=== PATIENT | female | born 1960 | race Caucasian/White ===

== ENCOUNTER 2024-10-02 14:33 | Observation (INO) ==
--- NOTE | 2024-10-02 14:55 | Emergency Department Note ---
HPI - SOB/Dyspnea General Chief Complaint: SOB -Shortness of Breath Stated Complaint: Trouble Breathing Time Seen by Provider: 10/02/24 14:51 Source: patient Mode of arrival: walk-in Limitations: no limitations History of Present Illness HPI Narrative: This is a 64 year old female patient that presents to the ER with c/o having the flu a week ago and now is having SOB. Patient states she has a hx of COPD. Patient denies any chest pain, back pain, fever, chills, abdominal pain, numbness, tingling, weakness or N/V. patient has low O2 sats here in the ER on arrival MD elicited complaint: Reports shortness of breath Pertinent past history: Reports COPD Onset (ago): hour(s) (2) Context: Reports recent illness Exacerbating factors: Reports nothing Relieving factors: Reports nothing Known history of: Reports COPD Associated symptoms: Reports denies other symptoms Treatment prior to arrival: Reports none Related Data Home oxygen amount: none Previous Rx's Medication Instructions Recorded cyclobenzaprine 10 mg tablet 10 mg PO TID PRN muscle spasm #14 02/05/24 tabs ketorolac 10 mg tablet 10 mg PO Q6H PRN pain #20 tabs 02/05/24 Allergies Allergy/AdvReac Type Severity Reaction Status Date / Time codeine Allergy Mild Verified 10/02/24 14:46 Review of Systems Status of ROS 10 or more systems reviewed and unremark able except as noted in history and below Constitutional Denies: fever, chills, change in weight, fatigue, malaise or night sweats Eyes Denies: change in vision, blurry vision, blind spots, light sensitivity, eye discomfort, eye discharge or dry eyes Ears, nose, mouth, and throat Denies: throat pain, neck pain, throat swelling, difficulty swallowing, hoarseness or mouth pain Cardiovascular Reports: shortness of breath with exertion and shortness of breath when lying down; Denies: chest pain, palpitations, edema, swelling of feet/ankles, lightheadedness, leg pain with exertion or bluish discoloration of hands/feet Respiratory Reports: shortness of breath; Denies: cough, wheezing, stridor, pain on inspiration, change in phlegm color or coughing up blood Gastrointestinal Denies: abdominal pain, nausea, vomiting, coffee grounds in vomit, heartburn, diarrhea, constipation or bloating Genitourinary Denies: painful urination, urinary frequency, urinary urgency, urinary incontinence, blood in urine or difficulty voiding Musculoskeletal Denies: back pain, neck pain, extremity pain, extremity swelling, joint pain, limited range of motion or joint swelling Integumentary/Breast Denies: rash, itching, redness, skin pain, skin tenderness, skin swelling, sores or new lesion Neurological Denies: headache, numbness in extremities, weakness in extremities, lack of coordination, dizziness, vertigo, confusion or behavioral changes Psychiatric Denies: anxiety, mood swings, panic attacks, change in sleep pattern, hopelessness, loss of interest, irritability or paranoia Endocrine Denies: excessive urination, excessive thirst, fatigue, cold intolerance or excessive sweating Hematologic/Lymphatic Denies: easy bruising, easy bleeding or enlarged lymph nodes Allergic/Immunologic Denies: hives, throat swelling, tongue swelling, facial swelling, wheezing or itchy eyes PFSH PFSH Medical History (Updated 10/03/24 @ 12:18 by Kary Gilmore DO) Tibia/fibula fracture Patient denies medical problems Surgical History Hx of hysterectomy Hx of appendectomy Social History Smoking status: current some day smoker Within the past year, how often did you have a drink containing alcohol: never Within the past year, how often did you have six or more drinks on one occasion: never Score interpretation: A score less than 3 is consistent with normal alcohol consumption. Problems where you live: no known problems Highest level of school completed/degree received: high school Feel stressed/tense/nervous/anxious/difficulty sleeping: not at all Exam Constitutional: normal general appearance and no apparent distress Vital Signs - 24 hr 10/02/24 14:44 10/02/24 15:25 10/02/24 15:30 Temperature 98.1 F Pulse Rate 98 H 87 Pulse Rate [Left B rachial] Respiratory Rate 22 22 Blood Pressure 122/66 137/55 Blood Pressure [Le ft Arm] Pulse Oximetry 90 L 93 L 92 L Oxygen Delivery Me thod Nasal Cannula Oxygen Flow Rate 2 10/02/24 16:30 10/02/24 17:09 10/02/24 17:45 Temperature Pulse Rate 84 89 Pulse Rate [Left B rachial] Respiratory Rate 22 22 Blood Pressure 130/60 137/55 128/62 Blood Pressure [Le ft Arm] Pulse Oximetry 90 L 91 L 84 L Oxygen Delivery Me thod Nasal Cannula Nasal Cannula Nasal Cannula Oxygen Flow Rate 2 2 2 10/02/24 17:50 10/02/24 18:20 10/02/24 18:20 Temperature 98.1 F 97.4 F L Pulse Rate 89 Pulse Rate [Left B rachial] 88 Respiratory Rate 25 H Blood Pressure 128/62 Blood Pressure [Le ft Arm] 131/55 Pulse Oximetry 91 L 95 Oxygen Delivery Me thod Nasal Cannula Nasal Cannula Oxygen Flow Rate 2 2 10/02/24 20:00 10/02/24 21:03 10/02/24 21:03 Temperature 97.9 F Pulse Rate Pulse Rate [Left B rachial] 78 Respiratory Rate 20 Blood Pressure Blood Pressure [Le ft Arm] 132/76 Pulse Oximetry 89 L 90 L 90 L Oxygen Delivery Me thod Nasal Cannula Nasal Cannula Oxygen Flow Rate 2 2 10/03/24 00:00 10/03/24 00:52 10/03/24 03:50 Temperature 98.2 F Pulse Rate Pulse Rate [Left B rachial] 71 68 Respiratory Rate 18 18 Blood Pressure Blood Pressure [Le ft Arm] 114/62 116/51 Pulse Oximetry 95 95 95 Oxygen Delivery Me thod Nasal Cannula Nasal Cannula Oxygen Flow Rate 2 2 10/03/24 04:54 10/03/24 07:30 10/03/24 08:00 Temperature 97.6 F Pulse Rate Pulse Rate [Left B rachial] 72 Respiratory Rate 24 Blood Pressure Blood Pressure [Le ft Arm] 109/51 Pulse Oximetry 96 89 L 96 Oxygen Delivery Me thod Nasal Cannula Oxygen Flow Rate 3 10/03/24 08:30 10/03/24 11:20 Temperature Pulse Rate Pulse Rate [Left B rachial] Respiratory Rate Blood Pressure Blood Pressure [Le ft Arm] Pulse Oximetry 95 97 Oxygen Delivery Me thod Oxygen Flow Rate HENMT: normocephalic, head/scalp atraumatic, hearing grossly normal bilaterally, external ears normal, EACs normal, nasal mucous membranes normal, external nose normal, oral mucous membranes normal and oropharynx normal Eyes: PERRL, EOMs intact bilaterally, conjunctivae normal and no scleral icterus Neck/C-Spine: visual inspection normal and trachea midline Lymph: no lymphadenopathy noted Chest: inspection of chest normal and palpation of chest normal Respiratory: breath sounds equal bilaterally, abnormal respiratory effort (shallow breathing), auscultation abnormal (diminished breath sound), wheezing noted (scattered wheezes), no rales, no retractions, no use of accessory muscles and chest percussion normal Cardiovascular: normal heart rate noted, regular rhythm noted, no gallop, no rub, no murmur, no JVD, no clicks, peripheral pulses 2+ throughout and no additional abnormal heart sounds Gastrointestinal: abdomen normal to inspection, abdomen soft to palpation, nontender to palpation, nontender to percussion, nondistended, normoactive bowel sounds, no hepatosplenomegaly, no masses, no pulsatile mass, no ascites and no hernia Genitourinary: no CVA tenderness Back/Pelvis: spine normal to inspection Extremities: normal to inspection, normal to palpation, no tenderness, full ROM, no joint enlargement and no deformity Neurology: accuracy expert II-XII intact, no movement abnormality noted, no focal motor deficit noted, no sensory deficits noted, gait normal, speech normal, coordination normal, no pronator drift noted, no fasciculations noted and GCS normal Psychiatry: mental status grossly normal, oriented x3, thought process normal and cooperative Skin: skin color normal and no rash Course Course Hospital Course: 1615: due to patient failed outpatient therapy and low O2 sats upon arrival to ER , will admit patient to the medical floor for further evaluation and treatment, VSS, no s/s of acute distress noted Vital Signs Vital signs: Vital Signs Temperature 98.1 F 10/02/24 14:44 Pulse Rate 98 H 10/02/24 14:44 Respiratory Rate 22 10/02/24 14:44 Blood Pressure 122/66 10/02/24 14:44 Pulse Oximetry 90 L 10/02/24 14:44 Temperature 97.6 F 10/03/24 08:00 Pulse Rate 72 10/03/24 08:00 Respiratory Rate 24 10/03/24 08:00 Blood Pressure 109/51 10/03/24 08:00 Pulse Oximetry 97 10/03/24 11:20 Oxygen Delivery Method Nasal Cannula 10/03/24 08:00 Oxygen Flow Rate 3 10/03/24 08:00 MDM - SOB/Dyspnea Differential Diagnosis Differential diagnosis: Likely asthma with exacerbation Medical Records Attestation: I reviewed the patient's medical records. Lab Data Attestation: I reviewed the patient's lab results. Labs: Lab Results 10/02/24 10/03/24 10/03/24 Range/Units 14:55 03:32 03:44 WBC 8.0 4.4 (4.3-9.3) K/uL RBC 4.5 4.3 (4.00-5.50) M/uL Hgb 13.1 12.8 (12.5-15.8) gm/dL Hct 38.9 37.1 (35.9-46.7) % MCV 87.0 85.6 (81.0-93.7) fl MCH 29.3 29.6 (27.6-32.2) pg MCHC 33.7 34.5 (33.1-35.3) g/dl RDW 12.7 13.2 (11.4-14.2) % Plt Count 214 210 (152-353) K/uL MPV 8.5 9.2 (6.9-10.8) fl Gran % 73.5 H 81.4 H (47.8-71.3) % Lymph % (Auto) 15.2 L 11.4 L (20.0-43.0) % Gray % (Auto) 10.6 H 7.1 (3.6-9.8) % Eos % (Auto) 0.4 0.0 L (0.4-2.8) % Baso % (Auto) 0.3 0.1 (0.1-0.85) Lymph # (Auto) 1.2 0.5 L (1.1-3.1) Gray # (Auto) 0.9 L 0.3 L (1.1-3.1) Eos # (Auto) 0.0 0.0 (0.0-0.2) Baso # (Auto) 0.0 0.0 (0.0-0.1) Absolute Gran (auto) 5.9 3.6 (2.3-6.0) ABG pH (7.35-7.45) ABG pCO2 (35-45) mmHg ABG pO2 (60-100) mmHg ABG PO2/FiO2 Ratio ABG HCO3 (22-26) mmo1/L ABG Total CO2 mmo1/L ABG O2 Saturation (92-100) % ABG Base Excess (-2-2) mmo1/L A-a O2 Gradient mmHg Respiratory Index (0-1) FiO2 % Sodium 139 142 (136-145) mmol/L Potassium 3.1 L 4.3 (3.6-5.2) mmol/L Chloride 102.0 106.0 (98-107) mmol/L Carbon Dioxide 30 27 (21-32) mmol/L Anion Gap 7.0 9.0 (4-14) mEq/L BUN 16 16 (7-18) mg/dL Creatinine 0.7 0.6 (0.6-1.3) mg/dL Estimated GFR 97.1 100.8 (>59.9) Glucose 108 141 H (70-110) mg/dL Calcium 9.5 9.2 (8.5-10.1) mg/dL Phosphorus 4.1 (2.5-4.9) mg/dL Magnesium 2.2 (1.8-2.4) mg/dL Total Bilirubin 0.89 0.58 (0.0-1.0) mg/dL AST 29 27 (15-37) U/L ALT 33 41 (30-65) U/L Alkaline Phosphatase 121 109 (50-136) U/L Troponin I High Sens <4.00 L 5.40 (4.0-60.4) ng/L B-Natriuretic Peptide 13.7 (0-100) pg/mL Total Protein 7.6 6.9 (6.4-8.2) g/dL Albumin 3.9 3.4 (3.4-5.0) g/dL Influenza Type A Ag Negative (Negative) Influenza Type B Ag Negative (Negative) 10/03/24 10/03/24 Range/Units 09:04 09:04 WBC (4.3-9.3) K/uL RBC (4.00-5.50) M/uL Hgb (12.5-15.8) gm/dL Hct (35.9-46.7) % MCV (81.0-93.7) fl MCH (27.6-32.2) pg MCHC (33.1-35.3) g/dl RDW (11.4-14.2) % Plt Count (152-353) K/uL MPV (6.9-10.8) fl Gran % (47.8-71.3) % Lymph % (Auto) (20.0-43.0) % Gray % (Auto) (3.6-9.8) % Eos % (Auto) (0.4-2.8) % Baso % (Auto) (0.1-0.85) Lymph # (Auto) (1.1-3.1) Gray # (Auto) (1.1-3.1) Eos # (Auto) (0.0-0.2) Baso # (Auto) (0.0-0.1) Absolute Gran (auto) (2.3-6.0) ABG pH 7.55 H (7.35-7.45) ABG pCO2 30 L (35-45) mmHg ABG pO2 61 190 (60-100) mmHg ABG PO2/FiO2 Ratio 0.32 ABG HCO3 26.2 H (22-26) mmo1/L ABG Total CO2 27.1 mmo1/L ABG O2 Saturation 94 (92-100) % ABG Base Excess 4.3 H (-2-2) mmo1/L A-a O2 Gradient 130 mmHg Respiratory Index 2.1 H (0-1) FiO2 32 % Sodium (136-145) mmol/L Potassium (3.6-5.2) mmol/L Chloride (98-107) mmol/L Carbon Dioxide (21-32) mmol/L Anion Gap (4-14) mEq/L BUN (7-18) mg/dL Creatinine (0.6-1.3) mg/dL Estimated GFR (>59.9) Glucose (70-110) mg/dL Calcium (8.5-10.1) mg/dL Phosphorus (2.5-4.9) mg/dL Magnesium (1.8-2.4) mg/dL Total Bilirubin (0.0-1.0) mg/dL AST (15-37) U/L ALT (30-65) U/L Alkaline Phosphatase (50-136) U/L Troponin I High Sens (4.0-60.4) ng/L B-Natriuretic Peptide (0-100) pg/mL Total Protein (6.4-8.2) g/dL Albumin (3.4-5.0) g/dL Influenza Type A Ag (Negative) Influenza Type B Ag (Negative) Imaging Data Imaging ordered: Chest x-ray Attestation: I have reviewed the pertinent imaging results. ECG Data Attestation: I have reviewed the pertinent ECG results. Discharge Plan Discharge Patient Disposition: Admitted As Observation Condition: Stable Clinical Impression: Acute exacerbation of chronic obstructive pulmonary disease (COPD), Hypoxia Interventions: ED Discharge Assessment Last Done: 10/02/24 17:43 ED Discharge Vital Sign Last Done: 10/02/24 17:50 Emergency Department Charge Sheet Last Done: 10/02/24 17:50 Time of Disposition: 16:24 Discharge Date/Time: 10/02/24 17:51
[2024-10-02] MEDS: METHYLPREDNISOLONE SOD SUCC/PF 125 MG/2 ML VIAL IVP ONE (14:58)
[2024-10-02 15:11] LABS: Basophils%(Percent) Auto 0.3 (0.1-0.85); Eosinophils%(Percent) Auto 0.4 % (0.4-2.8); Granulocytes % - Auto 73.5 % (47.8-71.3); Granulocytes#(Absolute)- Auto 5.9 (2.3-6.0); Hematocrit 38.9 % (35.9-46.7); Monocytes #(Absolute)- Auto 0.9 (1.1-3.1); Monocytes %(Percent)- Auto 10.6 % (3.6-9.8); Platelet Count 214 K/uL (152-353)
[2024-10-02 15:15] LABS: Potassium 3.1 mmol/L (3.6-5.2)
[2024-10-02] MEDS: IPRATROPIUM/ALBUTEROL SULFATE 3 ML AMPUL.NEB INH ONE (15:24)
[2024-10-02] MEDS ORDERED: POTASSIUM CHLORIDE 20 MEQ TAB.ER.PRT PO ONE (16:09)
[2024-10-02] MEDS: POTASSIUM CHLORIDE 20 MEQ TAB.ER.PRT PO ONE (16:14)
[2024-10-02] MEDS ORDERED: MAGNESIUM, ALUMINUM HYDROXIDE 30 ML ORAL.SUSP PO PRN (18:19)
[2024-10-02] MEDS ORDERED: bisacodyL 10 MG SUPP.RECT PR PRN (18:19)
[2024-10-02] MEDS ORDERED: ACETAMINOPHEN 500 MG TABLET PO PRN (18:19)
[2024-10-02] MEDS: IPRATROPIUM/ALBUTEROL SULFATE 3 ML AMPUL.NEB INH SCH (21:02)
[2024-10-03 04:44] LABS: Potassium 4.3 mmol/L (3.6-5.2)
[2024-10-03 04:46] LABS: Basophils%(Percent) Auto 0.1 (0.1-0.85); Granulocytes % - Auto 81.4 % (47.8-71.3); Granulocytes#(Absolute)- Auto 3.6 (2.3-6.0); Hematocrit 37.1 % (35.9-46.7); Mean Corpuscular Volume 85.6 fl (81.0-93.7); Monocytes #(Absolute)- Auto 0.3 (1.1-3.1); Monocytes %(Percent)- Auto 7.1 % (3.6-9.8); Platelet Count 210 K/uL (152-353); White Blood Count 4.4 K/uL (4.3-9.3)
[2024-10-03] MEDS: IPRATROPIUM/ALBUTEROL SULFATE 3 ML AMPUL.NEB INH PRN (08:30)
[2024-10-03] MEDS ORDERED: HYDROCODONE/CHLORPHEN P-STIREX 5 ML SUS.ER.12H PO PRN (09:00)
[2024-10-03] MEDS ORDERED: METHYLPREDNISOLONE SOD SUCC/PF 40 MG/ML VIAL INJ SCH (09:00)
[2024-10-03] MEDS: PANTOPRAZOLE SODIUM 40 MG TABLET.DR PO SCH (10:09)
[2024-10-03] MEDS: ENOXAPARIN SODIUM 40 MG/0.4 ML SYRINGE SUBQ SCH (10:09)
[2024-10-03] MEDS: LORazepam 2 MG/ML VIAL IVP ONE (10:10)
[2024-10-03] MEDS: AZITHROMYCIN 500 MG 500 MG in 0.9 % SODIUM CHLORIDE 250 ML IV SCH (10:10)
[2024-10-03] MEDS: METHYLPREDNISOLONE SOD SUCC/PF 125 MG/2 ML VIAL IVP SCH (10:14)
[2024-10-03 10:49] LABS: pH ABG 7.55 (7.35-7.45)
[2024-10-03 10:50] LABS: Base Excess ABG 4.3 mmo1/L (-2-2); Oxygen Saturation ABG 94 % (92-100); PCO2 ABG 30 mmHg (35-45); PO2 ABG 61 mmHg (60-100)
[2024-10-03] MEDS: BUDESONIDE 0.5 MG/2 ML AMPUL.NEB INH SCH (11:19)
--- NOTE | 2024-10-03 12:10 | History & Physical Report ---
H&P: HPI History of Present Illness Chief complaint: COPD EXACERBATION Narrative: This is a 64 year old female patient that presents to the ER with c/o having the flu a week ago and now is having SOB. Patient states she has a hx of COPD. Patient denies any chest pain, back pain, fever, chills, abdominal pain, nu mbness, tingling, weakness or N/V. patient has low O2 sats here in the ER on arrival. Patient admitted to med/surg floor for further observation and treatment. Day one of hospital stay, nurse reports breath sounds have not improved, not a lot of air movement. Patient was placed on high flow by respiratory this a.m, 40% @ 20L. Provider reports patient is only able to speak in 3 work sentences at this time. Chest X-Ray performed in the ED reflects "Mild emphysema present." Continue to monitor and treat at this time. patient remains in respiratory distress today Review of Systems Status of ROS 10 or more systems reviewed and unremark able except as noted in history and below Constitutional Denies: fever, chills, change in weight, fatigue, malaise or night sweats Eyes Denies: change in vision, blurry vision, blind spots, light sensitivity, eye discomfort, eye discharge or dry eyes Ears, nose, mouth, and throat Denies: throat pain, neck pain, throat swelling, difficulty swallowing, hoarseness, mouth pain or vertigo Cardiovascular Reports: shortness of breath with exertion and shortness of breath when lying down; Denies: chest pain, palpitations, edema, swelling of feet/ankles, lightheadedness, leg pain with exertion or bluish discoloration of hands/feet Respiratory Reports: shortness of breath; Denies: cough, wheezing, stridor, pain on inspiration, change in phlegm color or coughing up blood Gastrointestinal Denies: abdominal pain, nausea, vomiting, coffee grounds in vomit, heartburn, diarrhea, constipation, bloating or difficulty swallowing Genitourinary Denies: painful urination, urinary frequency, urinary urgency, urinary incontinence, blood in urine or difficulty voiding Musculoskeletal Denies: back pain, neck pain, extremity pain, extremity swelling, joint pain, limited range of motion or joint swelling Integumentary/Breast Denies: rash, itching, redness, skin pain, skin tenderness, skin swelling, sores or new lesion Neurological Denies: headache, numbness in extremities, weakness in extremities , lack of coordination, dizziness, vertigo, confusion or behavioral changes Psychiatric Denies: anxiety, mood swings, panic attacks, change in sleep pattern, hopelessness, loss of interest, irritability or paranoia Endocrine Denies: excessive urination, excessive thirst, fatigue, cold intolerance or excessive sweating Hematologic/Lymphatic Denies: easy bruising, easy bleeding or enlarged lymph nodes Allergic/Immunologic Denies: hives, throat swelling, tongue swelling, facial swelling, wheezing or itchy eyes PFSH PFS Medical History (Updated 10/03/24 @ 12:18 by Kary Gilmore DO) Tibia/fibula fracture Patient denies medical problems Surgical History Hx of hysterectomy Hx of appendectomy Social History Smoking status: current some day smoker Within the past year, how often did you have a drink containing alcohol: never Within the past year, how often did you have six or more drinks on one occasion: never Score interpretation: A score less than 3 is consistent with normal alcohol consumption. Problems where you live: no known problems Highest level of school completed/degree received: high school Feel stressed/tense/nervous/anxious/difficulty sleeping: not at all Meds Home Medications and Allergies Home Medications Medication Instructions Recorded Confirmed Type cyclobenzaprine 10 mg tablet 10 mg PO TID PRN muscle spasm #14 02/05/24 Rx tabs ketorolac 10 mg tablet 10 mg PO Q6H PRN pain #20 tabs 02/05/24 Rx Allergies Allergy/AdvReac Type Severity Reaction Status Date / Time codeine Allergy Mild Verified 10/02/24 14:46 Exam Exam: Patient in cheema's position upon entering room for exam. Constitutional: abnormal general appearance (chronically ill) and (lethargic), distress noted (moderate) and (respiratory), abnormal body habitus (cachectic), (thin) and (underweight), limitations noted (behavioral limitations) and (physical limitations) and alert Vital Signs - 24 hr 10/02/24 14:44 10/02/24 15:25 10/02/24 15:30 Temperature 98.1 F Pulse Rate 98 H 87 Pulse Rate [Left B rachial] Respiratory Rate 22 22 Blood Pressure 122/66 137/55 Blood Pressure [Le ft Arm] Pulse Oximetry 90 L 93 L 92 L Oxygen Delivery Me thod Nasal Cannula Oxygen Flow Rate 2 10/02/24 16:30 10/02/24 17:09 10/02/24 17:45 Temperature Pulse Rate 84 89 Pulse Rate [Left B rachial] Respiratory Rate 22 22 Blood Pressure 130/60 137/55 128/62 Blood Pressure [Le ft Arm] Pulse Oximetry 90 L 91 L 84 L Oxygen Delivery Me thod Nasal Cannula Nasal Cannula Nasal Cannula Oxygen Flow Rate 2 2 2 10/02/24 17:50 10/02/24 18:20 10/02/24 18:20 Temperature 98.1 F 97.4 F L Pulse Rate 89 Pulse Rate [Left B rachial] 88 Respiratory Rate 25 H Blood Pressure 128/62 Blood Pressure [Le ft Arm] 131/55 Pulse Oximetry 91 L 95 Oxygen Delivery Me thod Nasal Cannula Nasal Cannula Oxygen Flow Rate 2 2 10/02/24 20:00 10/02/24 21:03 10/02/24 21:03 Temperature 97.9 F Pulse Rate Pulse Rate [Left B rachial] 78 Respiratory Rate 20 Blood Pressure Blood Pressure [Le ft Arm] 132/76 Pulse Oximetry 89 L 90 L 90 L Oxygen Delivery Me thod Nasal Cannula Nasal Cannula Oxygen Flow Rate 2 2 10/03/24 00:00 10/03/24 00:52 10/03/24 03:50 Temperature 98.2 F Pulse Rate Pulse Rate [Left B rachial] 71 68 Respiratory Rate 18 18 Blood Pressure Blood Pressure [Le ft Arm] 114/62 116/51 Pulse Oximetry 95 95 95 Oxygen Delivery Me thod Nasal Cannula Nasal Cannula Oxygen Flow Rate 2 2 10/03/24 04:54 10/03/24 07:30 10/03/24 08:00 Temperature 97.6 F Pulse Rate Pulse Rate [Left B rachial] 72 Respiratory Rate 24 Blood Pressure Blood Pressure [Le ft Arm] 109/51 Pulse Oximetry 96 89 L 96 Oxygen Delivery Me thod Nasal Cannula Oxygen Flow Rate 3 10/03/24 08:30 10/03/24 11:20 Temperature Pulse Rate Pulse Rate [Left B rachial] Respiratory Rate Blood Pressure Blood Pressure [Le ft Arm] Pulse Oximetry 95 97 Oxygen Delivery Me thod Oxygen Flow Rate HENMT: normocephalic, head/scalp atraumatic, hearing grossly normal bilaterally, external ears normal, EACs normal, nasal mucous membranes normal, external nose normal, oral mucous membranes normal and oropharynx normal Eyes: PERRL, EOMs intact bilaterally, conjunctivae normal, no scleral icterus and papilledema noted Neck/C-Spine: trachea midline, cervical spine tenderness noted, abnormal cervical ROM noted, supple, no meningeal signs, thyroid normal and no carotid bruits Lymph: no lymphadenopathy noted and no lymphedema noted Chest: inspection of chest normal and palpation of chest normal Respiratory: breath sounds equal bilaterally, abnormal respiratory effort (shallow breathing) and (labored), auscultation abnormal (low air movement) (diminished breath sound), wheezing noted (expiratory wheezes), (inspiratory wheezes) and (scattered wheezes), no rales, no retractions and use of accessory muscles noted Cardiovascular: normal heart rate noted, regular rhythm noted, no gallop, no rub, no murmur, no JVD, no clicks, peripheral pulses 2+ throughout, no bruits noted and no additional abnormal heart sounds Gastrointestinal: abdomen normal to inspection, abdomen soft to palpation, nontender to palpation, nontender to percussion, nondistended, normoactive bowel sounds, no hepatosplenomegaly, no masses, no pulsatile mass, no ascites and hernia noted Genitourinary: no CVA tenderness and bladder normal to palpation Back/Pelvis: thoracic spine tenderness noted, lumbar spine tenderness noted, thoracic spine ROM abnormal, lumbar spine ROM abnormal, paraspinal muscle tenderness noted and straight leg raise abnormal Extremities: normal to inspection, normal to palpation, no tenderness, abnormal ROM noted (rt tib/fib tender to palpation and fracture history), no joint enlargement and no deformity Neurology: admissions officer II-XII intact, no movement abnormality noted, no focal motor deficit noted, sensory deficit noted, deep tendon reflexes 2+ bilaterally (rt knee not accessed secondary to pain), gait abnormality noted, speech abnormality noted other (limitied secondary to dyspnea), coordination normal, no pronator drift noted, no fasciculations noted and GCS normal Psychiatry: mental status grossly normal, oriented x3, thought process normal, cooperative, affect abnormality noted (anxious) and (depressed) and memory normal Skin: skin color abnormal, no rash, no lesions, no ecchymosis noted, no wounds, no lacerations, skin turgor abnormal, no jaundice, no petechiae, no mottling, nails abnormality noted and no alopecia Assessment and Plan Assessment and Plan (1) COPD exacerbation: Code(s): J44.1 - Chronic obstructive pulmonary disease with (acute) exacerbation (2) SOB (shortness of breath): Code(s): R06.02 - Shortness of breath (3) Hypokalemia: Code(s): E87.6 - Hypokalemia (4) Mild emphysema: Code(s): J43.9 - Emphysema, unspecified (5) Tibia/fibula fracture: Qualifiers: Encounter type: subsequent encounter Fracture healing: with routine healing Fracture type: closed Laterality: right Qualified Code(s): S82.201D - Unspecified fracture of shaft of right tibia, subsequent encounter for closed fracture with routine healing; S82.401D - Unspecified fracture of shaft of right fibula, subsequent encounter for closed fracture with routine healing Code(s): S82.209A - Unspecified fracture of shaft of unspecified tibia, initial encounter for closed fracture; S82.409A - Unspecified fracture of shaft of unspecified fibula, initial encounter for closed fracture (6) Respiratory alkalemia: Code(s): E87.3 - Alkalosis Plan duonebs Sulfate 3 ml INH RQ4 Budesonide 0.5 mg INH RBID Pantoprazole Sodium 40 mg PO BID Enoxaparin Sodium 40 mg SUBQ DAILY Methylprednisolone Sodium Succinate 125 mg IVP Q12H Azithromycin 500 mg in Sodium Chloride 250 mls @ 250 mls/hr IV DAILY Acetaminophen 500 mg PO Q6H PRN Magnesium Hydroxide 30 ml PO DAILY PRN Bisacodyl 10 mg MO DAILY PRN duonebsl Sulfate 3 ml INH Q2H PRN Chlorphenir/Hydrocodone Polistirex 5 ml PO Q12H PRN replace electrolytes per protocol change the 4 liters NC to high flow oxygen at this time to get sats up and can wean as tolerated Results Labs Labs: CBC WBC 4.4 K/uL (4.3-9.3) 10/03/24 03:44 RBC 4.3 M/uL (4.00-5.50) 10/03/24 03:44 Hgb 12.8 gm/dL (12.5-15.8) 10/03/24 03:44 Hct 37.1 % (35.9-46.7) 10/03/24 03:44 MCV 85.6 fl (81.0-93.7) 10/03/24 03:44 MCH 29.6 pg (27.6-32.2) 10/03/24 03:44 MCHC 34.5 g/dl (33.1-35.3) 10/03/24 03:44 RDW 13.2 % (11.4-14.2) 10/03/24 03:44 Plt Count 210 K/uL (152-353) 10/03/24 03:44 MPV 9.2 fl (6.9-10.8) 10/03/24 03:44 Gran % 81.4 % (47.8-71.3) H 10/03/24 03:44 Lymph % (Auto) 11.4 % (20.0-43.0) L 10/03/24 03:44 [place] % (Auto) 7.1 % (3.6-9.8) 10/03/24 03:44 Eos % (Auto) 0.0 % (0.4-2.8) L 10/03/24 03:44 Baso % (Auto) 0.1 (0.1-0.85) 10/03/24 03:44 Lymph # (Auto) 0.5 (1.1-3.1) L 10/03/24 03:44 [place] # (Auto) 0.3 (1.1-3.1) L 10/03/24 03:44 Eos # (Auto) 0.0 (0.0-0.2) 10/03/24 03:44 Baso # (Auto) 0.0 (0.0-0.1) 10/03/24 03:44 Absolute Gran (auto) 3.6 (2.3-6.0) 10/03/24 03:44 BMP Sodium 142 mmol/L (136-145) 10/03/24 03:44 Potassium 4.3 mmol/L (3.6-5.2) 10/03/24 03:44 Chloride 106.0 mmol/L (98-107) 10/03/24 03:44 Carbon Dioxide 27 mmol/L (21-32) 10/03/24 03:44 Anion Gap 9.0 mEq/L (4-14) 10/03/24 03:44 BUN 16 mg/dL (7-18) 10/03/24 03:44 Creatinine 0.6 mg/dL (0.6-1.3) 10/03/24 03:44 Estimated GFR 100.8 (>59.9) 10/03/24 03:44 Glucose 141 mg/dL (70-110) H 10/03/24 03:44 Calcium 9.2 mg/dL (8.5-10.1) 10/03/24 03:44 Phosphorus 4.1 mg/dL (2.5-4.9) 10/03/24 03:32 Magnesium 2.2 mg/dL (1.8-2.4) 10/03/24 03:32 Total Bilirubin 0.58 mg/dL (0.0-1.0) 10/03/24 03:44 AST 27 U/L (15-37) 10/03/24 03:44 ALT 41 U/L (30-65) 10/03/24 03:44 Alkaline Phosphatase 109 U/L (50-136) 10/03/24 03:44 Total Protein 6.9 g/dL (6.4-8.2) 10/03/24 03:44 Albumin 3.4 g/dL (3.4-5.0) 10/03/24 03:44 Cardiac Enzymes Troponin I High Sens 5.40 ng/L (4.0-60.4) 10/03/24 03:32 Liver Function Total Bilirubin 0.58 mg/dL (0.0-1.0) 10/03/24 03:44 AST 27 U/L (15-37) 10/03/24 03:44 ALT 41 U/L (30-65) 10/03/24 03:44 Alkaline Phosphatase 109 U/L (50-136) 10/03/24 03:44 Total Protein 6.9 g/dL (6.4-8.2) 10/03/24 03:44 Albumin 3.4 g/dL (3.4-5.0) 10/03/24 03:44 ABG ABG results: 10/03/24 09:04 ABG pH 7.55 H ABG pCO2 30 L ABG pO2 190 ABG HCO3 26.2 H ABG Total CO2 27.1 ABG O2 Saturation 94 ABG Base Excess 4.3 H Imaging Imaging ordered: Chest x-ray Radiologist's impression: XR CHEST 1V Date of Service: 10/02/24 HISTORY: pain; COMPARISON: March 17, 2021 FINDINGS: The trachea is midline. The cardiac silhouette is normal in size. Mild emphysema is present. The lungs are clear without focal infiltrate or effusion. The bony thorax is unremarkable. IMPRESSION: No acute cardiopulmonary disease.
[2024-10-03 15:54] LABS: Amphetamine Screen Urine NEG. (NEGATIVE); Cannabinoid Screen Urine NEG. (NEGATIVE); Cocaine Screen Urine NEG. (NEGATIVE); Methadone Screen Urine NEG. (NEGATIVE); Opiate Screen Urine NEG. (NEGATIVE)
[2024-10-03 16:51] LABS: Urine Appearance CLOUDY (CLEAR); Urine Blood NEGATIVE (NEG - TRACE); Urine Color DARK YELLOW (STRAW/YELL.); Urine Urobilinogen Normal (NORMAL)
[2024-10-04 05:36] LABS: Granulocytes % - Auto 89.2 % (47.8-71.3); Granulocytes#(Absolute)- Auto 7.3 (2.3-6.0); Hematocrit 35.8 % (35.9-46.7); Mean Corpuscular Volume 88.1 fl (81.0-93.7); Monocytes #(Absolute)- Auto 0.3 (1.1-3.1); Monocytes %(Percent)- Auto 3.5 % (3.6-9.8); Platelet Count 224 K/uL (152-353); White Blood Count 8.2 K/uL (4.3-9.3)
[2024-10-04 06:24] LABS: Potassium 4.4 mmol/L (3.6-5.2)
--- NOTE | 2024-10-04 11:09 | Internal Medicine Prog Note ---
Progress Note: A&P Assessment and Plan (1) COPD exacerbation: (2) SOB (shortness of breath): (3) Hypokalemia: (4) Mild emphysema: (5) Tibia/fibula fracture: Qualifiers: Encounter type: subsequent encounter Fracture healing: with routine healing Fracture type: closed Laterality: right Qualified Code(s): S82.201D - Unspecified fracture of shaft of right tibia, subsequent encounter for closed fracture with routine healing; S82.401D - Unspecified fracture of shaft of right fibula, subsequent encounter for closed fracture with routine healing (6) Respiratory alkalemia: Plan Continue current. Wean down O2 requirements. Fall Risk Details Singer Fall Scale Risk Level: High Fall Risk Current Medications: Current Medications Acetaminophen (Acetaminophen 500 Mg Tablet) 500 mg PO Q6H PRN PRN Reason: Pain Albuterol Sulfate (Ipratropium/Albuterol Sulfate 3 Ml Ampul.Neb) 3 ml INH RQ4 [facility] Last Admin: 10/04/24 08:00 Dose: 3 ml Albuterol Sulfate (Ipratropium/Albuterol Sulfate 3 Ml Ampul.Neb) 3 ml INH Q2H PRN PRN Reason: Wheezing Last Admin: 10/03/24 08:30 Dose: 3 ml Bisacodyl (Bisacodyl 10 Mg Supp.Rect) 10 mg [place] DAILY PRN PRN Reason: Constipation Budesonide (Budesonide 0.5 Mg/2 Ml Ampul.Neb) 0.5 mg INH RBID [facility] Last Admin: 10/04/24 08:00 Dose: 0.5 mg Chlorphenir/Hydrocodone Polistirex (Hydrocodone/Chlorphen P-Stirex 5 Ml Tamra.Er.12h) 5 ml PO Q12H PRN PRN Reason: Cough Enoxaparin Sodium (Enoxaparin Sodium 40 Mg/0.4 Ml Syringe) 40 mg SUBQ DAILY [facility] Last Admin: 10/04/24 09:02 Dose: 40 mg Azithromycin 500 mg/ Sodium (Chloride) 250 mls @ 250 mls/hr IV DAILY [facility] Stop: 10/05/24 09:59 Last Infusion: 10/04/24 10:32 Dose: Infused Magnesium Hydroxide (Magnesium, Aluminum Hydroxide 30 Ml Oral.Susp) 30 ml PO DAILY PRN PRN Reason: gerd Methylprednisolone Sodium Succinate (Methylprednisolone Sod Succ/Pf 125 Mg/2 Ml Vial) 125 mg IVP Q12H [facility] Last Admin: 10/04/24 09:02 Dose: 125 mg Pantoprazole Sodium (Pantoprazole Sodium 40 Mg Tablet.Dr) 40 mg PO BID [facility] Last Admin: 10/04/24 09:02 Dose: 40 mg Time Spent With Patient Time: Total time spent is greater than 50% in coordination of care (as documented) at patient's floor/unit and/or counseling patient: Time with patient: less than 15 minutes Internal Medicine - PN: Subj Subjective Interval history: Still on HHFNC but feeling better. Cough is still productive. Did rest last night. Exam Constitutional: normal general appearance, no apparent distress, average body habitus, no limitations and alert Vital Signs - 24 hr 10/03/24 11:20 10/03/24 12:00 10/03/24 15:20 Temperature 98.4 F Pulse Rate [Left B rachial] 82 Respiratory Rate 20 Blood Pressure [Le ft Arm] 119/60 Pulse Oximetry 97 96 93 L Oxygen Delivery Me thod Oxygen Flow Rate 3 Fraction of Inspir ed Oxygen 10/03/24 16:00 10/03/24 20:00 10/03/24 20:57 Temperature 98.0 F 97.6 F Pulse Rate [Left B rachial] 92 H 95 H Respiratory Rate 24 21 Blood Pressure [Le ft Arm] 104/57 105/74 Pulse Oximetry 90 L 94 L 93 L Oxygen Delivery Me thod High Flow Nasal Ca nnula High Flow Nasal Ca nnula Oxygen Flow Rate 20 3 Fraction of Inspir ed Oxygen 40 10/03/24 20:57 10/03/24 23:40 10/03/24 23:41 Temperature 98.3 F 98.3 F Pulse Rate [Left B rachial] 70 70 Respiratory Rate 19 19 Blood Pressure [Le ft Arm] 100/46 100/46 Pulse Oximetry 93 L 94 L 94 L Oxygen Delivery Me thod High Flow Nasal Ca nnula High Flow Nasal Ca nnula High Flow Nasal Ca nnula Oxygen Flow Rate 20 4 Fraction of Inspir ed Oxygen 40 10/04/24 03:51 10/04/24 08:00 10/04/24 08:00 Temperature 98.3 F Pulse Rate [Left B rachial] 71 Respiratory Rate 18 Blood Pressure [Le ft Arm] 92/54 116/66 Pulse Oximetry 97 98 Oxygen Delivery Me thod High Flow Nasal Ca nnula High Flow Nasal Ca nnula Oxygen Flow Rate 20 Fraction of Inspir ed Oxygen HENMT: normocephalic, head/scalp atraumatic, hearing grossly normal [place] aterally and external ears normal Eyes: PERRL, EOMs intact bilaterally and conjunctivae normal Neck/C-Spine: visual inspection normal and trachea midline Respiratory: breath sounds equal bilaterally, normal respiratory effort, auscultation abnormal (diminished breath sound) and wheezing noted (expiratory wheezes) Cardiovascular: normal heart rate noted, regular rhythm noted and no murmur Gastrointestinal: abdomen soft to palpation, nontender to palpation, nondistended and normoactive bowel sounds Neurology: no focal motor deficit noted, speech normal and no fasciculations noted Psychiatry: mental status grossly normal, oriented x3, thought process normal, cooperative, affect normal, psychomotor activity normal and memory normal Internal Medicine - PN: Obj Da Labs Labs: Laboratory Results - last 24 hr 10/03/24 10/04/24 15:12 04:45 WBC 8.2 RBC 4.1 Hgb 12.3 L Hct 35.8 L MCV 88.1 MCH 30.2 MCHC 34.3 RDW 13.2 Plt Count 224 MPV 8.8 Gran % 89.2 H Lymph % (Auto) 7.3 L [place] % (Auto) 3.5 L Eos % (Auto) 0.0 L Baso % (Auto) 0.0 L Lymph # (Auto) 0.6 L [place] # (Auto) 0.3 L Eos # (Auto) 0.0 Baso # (Auto) 0.0 Absolute Gran (auto) 7.3 H Sodium 145 Potassium 4.4 Chloride 109.0 H Carbon Dioxide 27 Anion Gap 9.0 BUN 17 Creatinine 0.6 Estimated GFR 100.8 Glucose 149 H Calcium 9.3 Phosphorus 3.7 Magnesium 2.3 Total Bilirubin 0.43 AST 16 ALT 33 Alkaline Phosphatase 97 Total Protein 6.5 Albumin 3.2 L Urine Color Dark yellow Urine Appearance Cloudy Ur Specific [place] 1.010 Urine Protein Negative Urine Glucose (UA) Normal Urine Ketones Negative Urine Occult Blood Negative Urine Nitrite Negative Urine Bilirubin Negative Urine Urobilinogen Normal Ur Leukocyte Esterase Negative Fluid pH 6.0 Urine Opiates Screen Neg. Urine Methadone Screen Neg. Barbiturate Screen Neg. Ur Phencyclidine Scrn Neg. Amphetamines Screen Neg. U Benzodiazepines Scrn Neg. Urine Cocaine Screen Neg. U Marijuana (THC) Screen Neg. Review of Systems Status of ROS: 10 or more systems reviewed and unremarkable except as noted in history and below Constitutional: Denies: fever, chills, change in weight, fatigue, malaise or night sweats Eyes: Denies: change in vision, blurry vision, blind spots, light sensitivity, eye discomfort, eye discharge or dry eyes Ears, nose, mouth, and throat: Denies: throat pain, neck pain, throat swelling, difficulty swallowing, hoarseness, mouth pain or vertigo Cardiovascular: Reports: shortness of breath with exertion and shortness of breath when lying down; Denies: chest pain, palpitations, edema, swelling of feet/ankles, lightheadedness, leg pain with exertion or bluish discoloration of hands/feet Respiratory: Reports: shortness of breath; Denies: cough, wheezing, stridor, pain on inspiration, change in phlegm color or coughing up blood Gastrointestinal: Denies: abdominal pain, nausea, vomiting, coffee grounds in vomit, heartburn, diarrhea, constipation, bloating or difficulty swallowing Genitourinary: Denies: painful urination, urinary frequency, urinary urgency, urinary incontinence, blood in urine or difficulty voiding Musculoskeletal: Denies: back pain, neck pain, extremity pain, extremity swelling, joint pain, limited range of motion or joint swelling Integumentary/Breast: Denies: rash, itching, redness, skin pain, skin tenderness, skin swelling, sores or new lesion Neurological: Denies: headache, numbness in extremities, weakness in extremities, lack of coordination, dizziness, vertigo, confusion or behavioral changes Psychiatric: Denies: anxiety, mood swings, panic attacks, change in sleep pattern, hopelessness, loss of interest, irritability or paranoia Endocrine: Denies: excessive urination, excessive thirst, fatigue, cold intolerance or excessive sweating Hematologic/Lymphatic: Denies: easy bruising, easy bleeding or enlarged lymph nodes Allergic/Immunologic: Denies: hives, throat swelling, tongue swelling, facial swelling, wheezing or itchy eyes
--- NOTE | 2024-10-05 08:30 | Internal Medicine Prog Note ---
Progress Note: A&P Assessment and Plan (1) COPD exacerbation: (2) SOB (shortness of breath): (3) Hypokalemia: (4) Mild emphysema: (5) Tibia/fibula fracture: Qualifiers: Encounter type: subsequent encounter Fracture healing: with routine healing Fracture type: closed Laterality: right Qualified Code(s): S82.201D - Unspecified fracture of shaft of right tibia, subsequent encounter for closed fracture with routine healing; S82.401D - Unspecified fracture of shaft of right fibula, subsequent encounter for closed fracture with routine healing (6) Respiratory alkalemia: Plan Continue current. Wean down off HFNC today. Likely home in next 24-48hrs. Fall Risk Details Singer Fall Scale Risk Level: Moderate Fall Risk Current Medications: Current Medications Acetaminophen (Acetaminophen 500 Mg Tablet) 500 mg PO Q6H PRN PRN Reason: Pain Albuterol Sulfate (Ipratropium/Albuterol Sulfate 3 Ml Ampul.Neb) 3 ml INH RQ4 [facility] Last Admin: 10/05/24 07:46 Dose: 3 ml Albuterol Sulfate (Ipratropium/Albuterol Sulfate 3 Ml Ampul.Neb) 3 ml INH Q2H PRN PRN Reason: Wheezing Last Admin: 10/03/24 08:30 Dose: 3 ml Bisacodyl (Bisacodyl 10 Mg Supp.Rect) 10 mg UT DAILY PRN PRN Reason: Constipation Budesonide (Budesonide 0.5 Mg/2 Ml Ampul.Neb) 0.5 mg INH RBID [facility] Last Admin: 10/05/24 07:47 Dose: 0.5 mg Chlorphenir/Hydrocodone Polistirex (Hydrocodone/Chlorphen P-Stirex 5 Ml Tamra.Er.12h) 5 ml PO Q12H PRN PRN Reason: Cough Enoxaparin Sodium (Enoxaparin Sodium 40 Mg/0.4 Ml Syringe) 40 mg SUBQ DAILY [facility] Last Admin: 10/04/24 09:02 Dose: 40 mg Azithromycin 500 mg/ Sodium (Chloride) 250 mls @ 250 mls/hr IV DAILY [facility] Stop: 10/05/24 09:59 Last Infusion: 10/04/24 10:32 Dose: Infused Magnesium Hydroxide (Magnesium, Aluminum Hydroxide 30 Ml Oral.Susp) 30 ml PO DAILY PRN PRN Reason: gerd Methylprednisolone Sodium Succinate (Methylprednisolone Sod Succ/Pf 125 Mg/2 Ml Vial) 125 mg IVP Q12H [facility] Last Admin: 10/04/24 21:50 Dose: 125 mg Pantoprazole Sodium (Pantoprazole Sodium 40 Mg Tablet.Dr) 40 mg PO BID [facility] Last Admin: 10/05/24 00:09 Dose: Not Given Time Spent With Patient Time: Total time spent is greater than 50% in coordination of care (as documented) at patient's floor/unit and/or counseling patient: Internal Medicine - PN: Subj Subjective Interval history: Still on HHFNC but feeling better. Cough is still productive. Did rest last night. Exam Constitutional: normal general appearance, no apparent distress, average body habitus, no limitations and alert Vital Signs - 24 hr 10/04/24 11:10 10/04/24 12:00 10/04/24 15:10 Temperature 98.7 F Pulse Rate [Left B rachial] 85 Respiratory Rate 23 Blood Pressure [Le ft Arm] 99/55 Pulse Oximetry 92 L 92 L 92 L Oxygen Delivery Me thod High Flow Nasal Ca nnula Oxygen Flow Rate Fraction of Inspir ed Oxygen 10/04/24 16:00 10/04/24 20:00 10/04/24 20:05 Temperature 97.7 F 97.5 F L Pulse Rate [Left B rachial] 92 H 85 Respiratory Rate 23 20 Blood Pressure [Le ft Arm] 102/57 115/61 Pulse Oximetry 91 L 91 L 92 L Oxygen Delivery Me thod High Flow Nasal Ca nnula Nasal Cannula Oxygen Flow Rate 20 3 Fraction of Inspir ed Oxygen 40 10/04/24 20:05 10/05/24 00:00 10/05/24 04:00 Temperature 98.1 F 97.7 F Pulse Rate [Left B rachial] 58 L 95 H Respiratory Rate 17 19 Blood Pressure [Le ft Arm] 137/47 113/67 Pulse Oximetry 92 L 94 L 91 L Oxygen Delivery Me thod High Flow Nasal Ca nnula Room Air High Flow Nasal Cannula High Flow Nasal Ca nnula Oxygen Flow Rate 20 Fraction of Inspir ed Oxygen 40 10/05/24 04:15 10/05/24 07:47 10/05/24 08:00 Temperature 98.2 F Pulse Rate [Left B rachial] 75 Respiratory Rate 21 Blood Pressure [Le ft Arm] 119/59 Pulse Oximetry 96 94 L 96 Oxygen Delivery Me thod High Flow Nasal Ca nnula Oxygen Flow Rate 20 Fraction of Inspir ed Oxygen 40 HENMT: normocephalic, head/scalp atraumatic, hearing grossly normal bilaterally and external ears normal Eyes: PERRL, EOMs intact bilaterally and conjunctivae normal Neck/C-Spine: visual inspection normal, trachea midline and cervical full ROM noted Respiratory: breath sounds equal bilaterally, normal respiratory effort, wheezing noted (expiratory wheezes), no retractions and no use of accessory muscles Cardiovascular: normal heart rate noted, regular rhythm noted and no murmur Gastrointestinal: abdomen soft to palpation, nontender to palpation, nondistended and normoactive bowel sounds Back/Pelvis: thoracic spine ROM normal and lumbar spine ROM normal Neurology: warehouse associate II-XII intact, no focal motor deficit noted, speech normal, no fasciculations noted and GCS normal Psychiatry: mental status grossly normal, oriented x3, thought process normal, cooperative, affect normal, psychomotor activity normal and memory normal Review of Systems Status of ROS: 10 or more systems reviewed and unremarkable except as noted in history and below Constitutional: Denies: fever, chills, change in weight, fatigue, malaise or night sweats Eyes: Denies: change in vision, blurry vision, blind spots, light sensitivity, eye discomfort, eye discharge or dry eyes Ears, nose, mouth, and throat: Denies: throat pain, neck pain, throat swelling, difficulty swallowing, hoarseness, mouth pain or vertigo Cardiovascular: Reports: shortness of breath with exertion and shortness of breath when lying down; Denies: chest pain, palpitations, edema, swelling of feet/ankles, lightheadedness, leg pain with exertion or bluish discoloration of hands/feet Respiratory: Reports: shortness of breath; Denies: cough, wheezing, stridor, pain on inspiration, change in phlegm color or coughing up blood Gastrointestinal: Denies: abdominal pain, nausea, vomiting, coffee grounds in vomit, heartburn, diarrhea, constipation, bloating or difficulty swallowing Genitourinary: Denies: painful urination, urinary frequency, urinary urgency, urinary incontinence, blood in urine or difficulty voiding Musculoskeletal: Denies: back pain, neck pain, extremity pain, extremity swelling, joint pain, limited range of motion or joint swelling Integumentary/Breast: Denies: rash, itching, redness, skin pain, skin tenderness, skin swelling, sores or new lesion Neurological: Denies: headache, numbness in extremities, weakness in extremities, lack of coordination, dizziness, vertigo, confusion or behavioral changes Psychiatric: Denies: anxiety, mood swings, panic attacks, change in sleep pattern, hopelessness, loss of interest, irritability or paranoia Endocrine: Denies: excessive urination, excessive thirst, fatigue, cold intolerance or excessive sweating Hematologic/Lymphatic: Denies: easy bruising, easy bleeding or enlarged lymph nodes Allergic/Immunologic: Denies: hives, throat swelling, tongue swelling, facial swelling, wheezing or itchy eyes
[2024-10-06 05:21] LABS: Basophils #(Absolute) Auto 0.1 (0.0-0.1); Basophils%(Percent) Auto 0.8 (0.1-0.85); Granulocytes % - Auto 91.9 % (47.8-71.3); Granulocytes#(Absolute)- Auto 9.9 (2.3-6.0); Hematocrit 36.2 % (35.9-46.7); Mean Corpuscular Volume 87.7 fl (81.0-93.7); Monocytes #(Absolute)- Auto 0.4 (1.1-3.1); Monocytes %(Percent)- Auto 3.3 % (3.6-9.8); Platelet Count 238 K/uL (152-353); White Blood Count 10.8 K/uL (4.3-9.3)
[2024-10-06 08:49] VITALS: RESP 19
[2024-10-06 12:42] VITALS: PULSE 87
[2024-10-06 14:37] VITALS: BP 110/57; TEMP 97.8
--- NOTE | 2024-10-07 10:12 | Discharge Summary ---
DS: Providers Provider Date of admission: 10/02/24 17:07 Primary care physician: Kary Gilmore DO Admitting clinician: Rosalina Levin Attending physician on admission: Kary Gilmore Attending physician on discharge: Kary Gilmore Discharging clinician: Kary Gilmore Anticipated date of discharge: 10/06/24 DS: Diagnosis Discharge Diagnosis (1) COPD exacerbation: (2) SOB (shortness of breath): (3) Hypokalemia: (4) Mild emphysema: (5) Tibia/fibula fracture: Qualifiers: Encounter type: subsequent encounter Fracture healing: with routine healing Fracture type: closed Laterality: right Qualified Code(s): S82.201D - Unspecified fracture of shaft of right tibia, subsequent encounter for closed fracture with routine healing; S82.401D - Unspecified fracture of shaft of right fibula, subsequent encounter for closed fracture with routine healing (6) Respiratory alkalemia: Plan Discharge home for self care. DS: Summary Hospital Course Hospital Course: This is a 64 year old female patient that presents to the ER with c/o having the flu a week ago and now is having SOB. Patient states she has a hx of COPD. Patient denies any chest pain, back pain, fever, chills, abdominal pain, numbness, tingling, weakness or N/V. patient has low O2 sats here in the ER on arrival. Patient admitted to med/surg floor for further observation and treatment. Day one of hospital stay, nurse reports breath sounds have not improved, not a lot of air movement. Patient was placed on high flow by respiratory this a.m, 40% @ 20L. Provider reports patient is only able to speak in 3 work sentences at this time. Chest X-Ray performed in the ED reflects "Mild emphysema present." Continue to monitor and treat at this time. patient remains in respiratory distress today. Day two and three of hospital stay, patient is requiring high flow O2 via nasal canula. Patient states she is feeling better. Her cough continues to be productive. Patient reported she rested well through the night. Provider will continue to monitor and treat. Day four of hospital stay, patient is feeling a lot better and no longer requiring high flow O2. Patient is currently on 3L O2, O2 qualifier was perfo rmed by Respiratory Therapy, patient failed. Home O2 is required for continued use. Provider recommended Pulmonary Rehab to patient, patient was observed to be uneasy about participating in it, provider stated she would request for someone from pulmonary rehab to come down and give her more information on how it can benefit her. Patient was educated on the benefits of stopping smoking cigarettes, she states she quit about a month ago and will not touch another one. Patient is ready to discharge home for self care. Follow up with PCP in 5-7 days of discharge. Status at Discharge Functional status at discharge: independent ambulation Overall status at discharge: patient is back to baseline Time Spent with Patient Time attestation: Total time spent providing and/or coordinating discharge services: Exam Exam: Patient in cheema's position upon entering room for exam. Constitutional: normal general appearance, no apparent distress, average body habitus, no limitations and alert Vital Signs - 24 hr 10/05/24 20:00 10/05/24 20:00 10/05/24 20:16 Temperature 98.1 F Pulse Rate Pulse Rate [Left B rachial] 92 H Respiratory Rate Blood Pressure [Le ft Arm] 121/58 Pulse Oximetry 93 L 96 96 Oxygen Delivery Me thod Room Air Nasal Cannula Oxygen Flow Rate 3 Fraction of Inspir ed Oxygen 32 10/05/24 23:54 10/06/24 00:05 10/06/24 04:00 Temperature 98.2 F 98.3 F Pulse Rate Pulse Rate [Left B rachial] 79 72 Respiratory Rate 20 16 Blood Pressure [Le ft Arm] 116/60 110/52 Pulse Oximetry 95 93 L 93 L Oxygen Delivery Me thod Room Air Nasal Cannula Oxygen Flow Rate 3 Fraction of Inspir ed Oxygen 10/06/24 04:15 10/06/24 08:00 10/06/24 08:33 Temperature 98.3 F Pulse Rate Pulse Rate [Left B rachial] 62 Respiratory Rate 19 Blood Pressure [Le ft Arm] 127/66 Pulse Oximetry 93 L 99 96 Oxygen Delivery Me thod Nasal Cannula Oxygen Flow Rate 3 Fraction of Inspir ed Oxygen 10/06/24 11:31 10/06/24 12:00 10/06/24 12:26 Temperature 97.8 F Pulse Rate 87 Pulse Rate [Left B rachial] 87 Respiratory Rate 19 Blood Pressure [Le ft Arm] 110/57 Pulse Oximetry 90 L 95 92 L Oxygen Delivery Me thod Nasal Cannula Nasal Cannula Oxygen Flow Rate 3 2 Fraction of Inspir ed Oxygen 28 10/06/24 15:38 Temperature Pulse Rate Pulse Rate [Left B rachial] Respiratory Rate Blood Pressure [Le ft Arm] Pulse Oximetry 92 L Oxygen Delivery Me thod Oxygen Flow Rate Fraction of Inspir ed Oxygen HENMT: normocephalic, head/scalp atraumatic, hearing grossly normal bilaterally, external ears normal, EACs normal, nasal mucous membranes normal, external nose normal, oral mucous membranes normal and oropharynx normal Eyes: PERRL, EOMs intact bilaterally, conjunctivae normal, no scleral icterus and papilledema noted Neck/C-Spine: visual inspection normal, trachea midline, cervical spine tenderness noted, cervical full ROM noted, supple, no meningeal signs, thyroid normal and no carotid bruits Lymph: no lymphadenopathy noted and no lymphedema noted Chest: inspection of chest normal and palpation of chest normal Respiratory: breath sounds equal bilaterally, normal respiratory effort, auscultation abnormal (diminished breath sound), wheezing noted (expiratory wheezes), no rales, no retractions, no use of accessory muscles and chest percussion normal Cardiovascular: normal heart rate noted, regular rhythm noted, no gallop, no rub, no murmur, no JVD, no clicks, peripheral pulses 2+ throughout, no bruits noted and no additional abnormal heart sounds Gastrointestinal: abdomen normal to inspection, abdomen soft to palpation, nontender to palpation, nontender to percussion, nondistended, normoactive bowel sounds, no hepatosplenomegaly, no masses, no pulsatile mass, no ascites and hernia noted Genitourinary: no CVA tenderness and bladder normal to palpation Back/Pelvis: spine normal to inspection, thoracic spine tenderness noted, lumbar spine tenderness noted, thoracic spine ROM normal, lumbar spine ROM normal, paraspinal muscle tenderness noted and straight leg raise abnormal Extremities: normal to inspection, normal to palpation, no tenderness, abnormal ROM noted (rt tib/fib tender to palpation and fracture history), no joint enlargement and no deformity Neurology: payroll associate II-XII intact, no movement abnormality noted, no focal motor deficit noted, sensory deficit noted, deep tendon reflexes 2+ bilaterally (rt knee not accessed secondary to pain), gait abnormality noted, speech normal, coordination normal, no pronator drift noted, no fasciculations noted and GCS normal Psychiatry: mental status grossly normal, oriented x3, thought process normal, cooperative, affect normal, psychomotor activity normal and memory normal Skin: skin color abnormal, no rash, no lesions, no ecchymosis noted, no wounds, no lacerations, skin turgor abnormal, no jaundice, no petechiae, no mottling, nails abnormality noted and no alopecia DS: Data Data Completed and Pending Labs on day of discharge: Labs from last 24 hours 10/06/24 05:05 WBC 10.8 H RBC 4.1 Hgb 12.3 L Hct 36.2 MCV 87.7 MCH 29.8 MCHC 34.0 RDW 13.6 Plt Count 238 MPV 8.6 Gran % 91.9 H Lymph % (Auto) 4.0 L Giles % (Auto) 3.3 L Eos % (Auto) 0.0 L Baso % (Auto) 0.8 Lymph # (Auto) 0.4 L Giles # (Auto) 0.4 L Eos # (Auto) 0.0 Baso # (Auto) 0.1 Absolute Gran (auto) 9.9 H Sodium 146 H Potassium 4.0 Chloride 111.0 H Carbon Dioxide 27 Anion Gap 8.0 BUN 18 Creatinine 0.7 Estimated GFR 97.1 Glucose 156 H Calcium 8.9 Phosphorus 3.3 Magnesium 2.3 Total Bilirubin 0.38 AST 11 L ALT 19 L Alkaline Phosphatase 96 Total Protein 6.2 L Albumin 2.9 L Preliminary micro results at discharge 10/03/24 14:06 Respiratory Culture - Preliminary Sputum - Induced Imaging Chest x-ray: Radiologist's impression: XR CHEST 1V Date of Service: 10/02/24 HISTORY: pain; COMPARISON: March 17, 2021 FINDINGS: The trachea is midline. The cardiac silhouette is normal in size. Mild emphysema is present. The lungs are clear without focal infiltrate or effusion. The bony thorax is unremarkable. IMPRESSION: No acute cardiopulmonary disease. Discharge Plan Discharge Disposition: Home, Self-Care Condition: Improved Discharge Medications: New budesonide-formoterol [Breyna] 160-4.5 mcg/actuation HFA aerosol inhaler 2 puff inhalation Q12H Qty: 10.2 0RF famotidine [Pepcid] 40 mg tablet 40 mg PO BID Qty: 30 0RF megestrol 20 mg tablet 20 mg PO BID Qty: 20 0RF Continued albuterol sulfate 2.5 mg /3 mL (0.083 %) solution for nebulization 2.5 mg inhalation Q6H PRN (Reason: shortness of breath or wheezing) Patient Comments: INHALE THE CONTENTS OF 1 VIAL VIA NEBULIZER EVERY SIX HOURS NEEDED USE DIRECTED benzonatate 200 mg capsule 200 mg PO TID PRN (Reason: cough) Patient Comments: TAKE ONE CAPSULE BY MOUTH THREE TIMES DAILY FOR 7 DAYS NEEDED doxycycline hyclate 100 mg capsule 100 mg PO BID Patient Comments: TAKE ONE CAPSULE BY MOUTH TWICE DAILY FOR 10 DAYS Discharge Orders: Discharge Order (Routine); Ordered 10/06/24 Ordered By: Kary Gilmore Activity: as per physical therapy and increase activity as tolerated Diet: advance to your usual diet Interventions: Discharge Assessment Last Done: 10/06/24 15:16 MED/SURG & ICU Observation Charge Sheet Last Done: 10/06/24 15:19 Patient Instructions: COPD (Chronic Obstructive Pulmonary Disease) (DC) Activity Restrictions/Additional Instructions: increase water and electrolyte drinks and a can of ensure plus at least 2 times a day follow up orthopedics as scheduled make a follow up appointment with PCP and monitor weight daily needs work excuse until she follow up with PCP and is released by them discharge patient once oxygen available for patient to get home with portable and concentrator at home with tubing needs sleep study to see if bipap could benefit patient at night no driving until released by her PCP Forms: Portal/Health Info Access Inst Follow-Ups: Taylor Lamb [Nurse Practitioner] - 10/08/24 8:30 am Kary Gilmore DO [Primary Care Provider] - Discharge Date/Time: 10/06/24 15:23
== END 2024-10-06 15:23 | disposition home or self-care (01) ==
LOC: ED 14:33 → MS 14:33
PROVIDERS: ADMIT Family Medicine; ATTEND Family Medicine